=== PATIENT | female | born 1960 | race Caucasian/White ===

== ENCOUNTER 2020-02-08 21:34 | Emergency (ER) | payer OTHER ==
[2020-02-08 21:50] VITALS: TEMP 98.4
[2020-02-08] MEDS ORDERED: SODIUM CHLORIDE 0.9% 1,000 ML IV STA (22:28)
[2020-02-08] MEDS ORDERED: FAMOTIDINE 20 MG/2 ML VIAL IV STA (22:28)
[2020-02-08] MEDS ORDERED: DEXAMETHASONE SOD PHOSPHATE 10 MG/ML 1 ML VIAL IV STA (22:29)
--- NOTE | 2020-02-08 22:31 | ED ---
Allergic Reaction HPI - General Chief complaint: Allergic Reaction Stated complaint: Lips Swelling Time Seen by Provider: 02/08/20 22:01 Source: patient, RN notes reviewed, old records reviewed Mode of arrival: ambulatory Limitations: no limitations - History of Present Illness Initial Comments: This is a 59-year-old female DF for evaluation patient Dese for evaluation of swelling swelling of upper lip started before dinner patient finished dinner no as well as maybe a little bit worse On the Right Side Will Now on the Left Side with No Oral Involvement No Tongue Involvement No Shortness of Breath or Wheezing. Patient Is No Known ALLERGIC exposure but does admit to taking an JANKI inhibitor lisinopril Complaint: allergic reaction, facial swelling (Upper lip) -: hour(s) Exposure: medication (Lisinopril) Symptoms: lip swelling Severity: moderate Treatment Prior to Arrival: benadryl Previous Allergy History: none - Related Data Previous Rx's Medication Instructions Recorded Famotidine [Pepcid] 20 mg PO BID #28 tablet 02/08/20 Metoprolol Tartrate [Lopressor] 50 mg PO BID #60 tab 02/08/20 diphenhydrAMINE [Benadryl] 50 mg PO QID PRN #20 capsule 02/08/20 predniSONE 50 mg PO DAILY #5 tab 02/08/20 Allergies Allergy/AdvReac Type Severity Reaction Status Date / Time cephalexin [From Keflex] AdvReac Rash/Hives Verified 02/08/20 21:50 Sulfa (Sulfonamide AdvReac Rash/Hives Verified 02/08/20 21:50 Antibiotics) Review of Systems ROS Statement: Those systems with pertinent positive or pertinent negative responses have been documented in the HPI. ROS Other: All systems not noted in ROS Statement are negative. Past Medical History Past Medical History: Hypertension, Thyroid Disorder History of Any Multi-Drug Resistant Organisms: None Reported Past Surgical History: Appendectomy, Tonsillectomy Additional Past Surgical History / Comment(s): sinus surgery Past Psychological History: No Psychological Hx Reported Smoking Status: Never smoker Past Alcohol Use History: Daily Past Drug Use History: None Reported General Exam Limitations: no limitations General appearance: alert, in no apparent distress Head exam: Present: atraumatic, normocephalic, normal inspection Eye exam: Present: normal appearance, PERRL, EOMI. Absent: scleral icterus, conjunctival injection, periorbital swelling ENT exam: Present: normal exam, mucous membranes moist, other (Upper lip swelling no other swelling) Neck exam: Present: normal inspection. Absent: tenderness, meningismus, lymphadenopathy Respiratory exam: Present: normal lung sounds bilaterally. Absent: respiratory distress, wheezes, rales, rhonchi, stridor Cardiovascular Exam: Present: regular rate, normal rhythm, normal heart sounds. Absent: systolic murmur, diastolic murmur, rubs, gallop, clicks GI/Abdominal exam: Present: soft, normal bowel sounds. Absent: distended, tenderness, guarding, rebound, rigid Extremities exam: Present: normal inspection, full ROM, normal capillary refill. Absent: tenderness, pedal edema, joint swelling, calf tenderness Back exam: Present: normal inspection Neurological exam: Present: alert, oriented X3, CN II-XII intact Psychiatric exam: Present: normal affect, normal mood Skin exam: Present: warm, dry, intact, normal color. Absent: rash Course Vital Signs 02/08/20 02/08/20 21:44 23:10 Temperature 98.4 F Pulse Rate 72 65 Respiratory 18 16 Rate Blood Pressure 123/81 125/79 O2 Sat by Pulse 98 99 Oximetry - Reevaluation(s) Reevaluation #1: 02/09/20 00:11 Medical record is reviewed Reevaluation #2: 02/09/20 00:11 Swelling is mildly improved Reevaluation #3: 02/09/20 00:11 Patient has treatment here in the ER again mildly improved spoke with patient regarding symptoms management. We'll change blood pressure medication patient refusing admission Medical Decision Making - Medical Decision Making 59 female DEL with mild angioedema left upper lip swelling. Maybe mild improvement here in the ER advised observation patient refuses, will follow-up with primary care and return if symptoms progress, patient knows not to take lisinopril again - Lab Data Result diagrams: 02/08/20 22:43 02/08/20 22:43 Lab Results 02/08/20 02/08/20 Range/Units 22:43 22:43 WBC 3.6 L (3.8-10.6) k/uL RBC 3.92 (3.80-5.40) m/uL Hgb 11.9 (11.4-16.0) gm/dL Hct 35.7 (34.0-46.0) % MCV 91.1 (80.0-100.0) fL MCH 30.4 (25.0-35.0) pg MCHC 33.4 (31.0-37.0) g/dL RDW 12.1 (11.5-15.5) % Plt Count 229 (150-450) k/uL Neutrophils % 49 % Lymphocytes % 43 % Monocytes % 6 % Eosinophils % 0 % Basophils % 0 % Neutrophils # 1.8 (1.3-7.7) k/uL Lymphocytes # 1.6 (1.0-4.8) k/uL Monocytes # 0.2 (0-1.0) k/uL Eosinophils # 0.0 (0-0.7) k/uL Basophils # 0.0 (0-0.2) k/uL Sodium 129 L (137-145) mmol/L Potassium 4.3 (3.5-5.1) mmol/L Chloride 95 L (98-107) mmol/L Carbon Dioxide 27 (22-30) mmol/L Anion Gap 7 mmol/L BUN 13 (7-17) mg/dL Creatinine 0.80 (0.52-1.04) mg/dL Est GFR (CKD-EPI)AfAm >90 (>60 ml/min/1.73 sqM) Est GFR (CKD-EPI)NonAf 82 (>60 ml/min/1.73 sqM) Glucose 89 (74-99) mg/dL Calcium 9.5 (8.4-10.2) mg/dL Disposition Clinical Impression: Allergic reaction, Angioedema Disposition: HOME SELF-CARE Condition: Good Instructions (If sedation given, give patient instructions): Anaphylaxis (ED) Prescriptions: diphenhydrAMINE [Benadryl] 50 mg PO QID PRN #20 capsule PRN Reason: itching/rash Metoprolol Tartrate [Lopressor] 50 mg PO BID #60 tab Famotidine [Pepcid] 20 mg PO BID #28 tablet predniSONE 50 mg PO DAILY #5 tab Is patient prescribed a controlled substance at d/c from ED?: No Referrals: None,Stated [Primary Care Provider] - 1-2 days
[2020-02-08] MEDS ORDERED: TRANEXAMIC ACID 1,000 MG in SODIUM CHLORIDE 0.9% 100 ML IV ONE (22:45)
[2020-02-08 23:05] LABS: Basophils % (A) 0 %; Eosinophils % (A) 0 %; HCT 35.7 % (34.0-46.0); HGB 11.9 gm/dL (11.4-16.0); Lymphocytes # (A) 1.6 k/uL (1.0-4.8); Lymphocytes % (A) 43 %; MCH 30.4 pg (25.0-35.0); MCHC 33.4 g/dL (31.0-37.0); MCV 91.1 fL (80.0-100.0); Monocytes # (A) 0.2 k/uL (0-1.0); Monocytes % (A) 6 %; Neutrophils # (A) 1.8 k/uL (1.3-7.7); Neutrophils % (A) 49 %; Platelet Count 229 k/uL (150-450); RBC 3.92 m/uL (3.80-5.40); RDW 12.1 % (11.5-15.5); WBC 3.6 k/uL (3.8-10.6)
[2020-02-08 23:27] LABS: African American GFR (CKD) >90 (>60 ml/min/1.73 sqM); Anion Gap 7 mmol/L; Blood Urea Nitrogen 13 mg/dL (7-17); Calcium 9.5 mg/dL (8.4-10.2); Carbon Dioxide 27 mmol/L (22-30); Chloride 95 mmol/L (98-107); Glucose 89 mg/dL (74-99); Non-African American GFR(CKD) 82 (>60 ml/min/1.73 sqM); Potassium 4.3 mmol/L (3.5-5.1); Sodium 129 mmol/L (137-145)
[2020-02-08] MEDS ORDERED: predniSONE 20 MG TAB PO STA (23:45)
[2020-02-08 23:52] VITALS: BP 125/79; PULSE 65; RESP 16
== END 2020-02-09 00:06 | disposition home or self-care (01) ==
LOC: EC 21:34
DX: T78.3XXA Angioneurotic edema, initial encounter (principal); T46.4X5A Adverse effect of angiotensin-converting-enzyme inhibitors, initial encounter; Z88.1 Allergy status to other antibiotic agents; Z88.2 Allergy status to sulfonamides
CPT/HCPCS: 99284; 96365; 96375 ×2; 36415; 80048; 85025; J1100; J7512

== ENCOUNTER → 2021-07-17 | Outpatient (CLI) | payer OTHER ==
--- NOTE | 2021-07-23 10:53 | MM ---
Reason for exam: screening (asymptomatic). Last mammogram was performed 2 years and 1 month ago. History: Patient is postmenopausal and is nulliparous. Retro-pectoral silicone gel implants in both breasts, 2016. Reductions of both breasts, 2016. Physical Findings: A clinical breast exam by your physician is recommended on an annual basis and results should be correlated with mammographic findings. MG 3D Screen Mammo Imp/Cad Bilateral CC and MLO view(s) were taken. Prior study comparison: June 18, 2019, mammogram, performed at [facility]. December 07, 2017, mammogram, performed at [facility]. The breast tissue is extremely dense which could obscure a lesion on mammography. Bilateral implants are intact. No significant changes when compared with prior studies. ASSESSMENT: Benign, BI-RAD 2 RECOMMENDATION: Routine screening mammogram of both breasts in 1 year.
== END | disposition home or self-care (01) ==
LOC: RADMAMWWP 13:34
PROVIDERS: ATTEND Internal Medicine
DX: Z12.31 Encounter for screening mammogram for malignant neoplasm of breast (principal)
CPT/HCPCS: 77063; 77067

== ENCOUNTER → 2021-07-29 | Outpatient (CLI) | payer OTHER ==
--- NOTE | 2021-07-30 08:55 | CT ---
EXAMINATION TYPE: CT heart w calcium score DATE OF EXAM: 07/30/2021 COMPARISON: HISTORY: Screening for cardiovascular disorder. 213.9 CT DLP: 67.2 mGycm Automated exposure control for dose reduction was used. CT CALCIUM SCORING Coronary calcium is a marker for plaque (fatty deposits) in a blood vessel or atherosclerosis (harden ing of the arteries). The presence and amount of calcium detected in a coronary artery by the CT sca n, indicates the presence and amount of atherosclerotic plaque. These calcium deposits appear years before the development of heart disease symptoms such as chest pain and shortness of breath. A calcium score is computed for each of the coronary arteries based upon the volume and density of th e calcium deposits. This can be referred to as your calcified plaque burden. It does not correspond directly to the percentage of narrowing in the artery but does correlate with the severity of the un derlying coronary atherosclerosis. PROCEDURE TECHNIQUE - Prospective Gating was used. Slice thickness: 3mm. Density threshold (HU): 130, Pixel threshold: 3, Algorithm: discrete. RESULTS Region: LM Calcium Score (Agatston): 0 Volume (mm3): 0 Mass (g): 0 Region: RCA Calcium Score ([place]at[place]): 0 Volume (mm3): 0 Mass (g): 0 Region: LAD Calcium Score (Agatston): 0 Volume (mm3): 0 Mass (g): 0 Region: CX Calcium Score (Agatston): 0 Volume (mm3): 0 Mass (g): 0 Region: PDA Calcium Score (Agatston): 0 Volume (mm3): 0 Mass (g): 0 Total: Calcium Score (Agatston): 0 Volume (mm3): 0 Mass (g): 0 TOTAL CALCIUM SCORE: 0 Mild atherosclerotic plaque of the aorta. IMPRESSION: 1. There is a 5 mm right lower lobe pulmonary nodule. Standard CT of the chest is recommended. 2. Calcium Score: 0 Implication: No identifiable plaque. Risk of Coronary Artery Disease: Very low, generally less than 5%. CALCIUM SCORE IMPLICATION RISK OF C ORONARY ARTERY DISEASE 0 No identifiable plaque Very low, generally less than 5% 1-10 Minimal identifiable plaque Very unlikely, less than 10% 11-100 Definite, at least mild atherosclerotic plaque Mild or m inimal coronary narrowings likely 101-400 Definite, at least moderate atherosclerotic plaque Mild coronary ar mike disease highly likely, significant narrowing possible 401 or Higher Extensive atherosclerotic plaque High lik elihood of at least one significant coronary narrowing
== END | disposition home or self-care (01) ==
LOC: RADCTMAIN 14:16
PROVIDERS: ATTEND Internal Medicine
DX: Z13.6 Encounter for screening for cardiovascular disorders (principal); R91.1 Solitary pulmonary nodule
CPT/HCPCS: 75571

== ENCOUNTER → 2021-08-14 | Outpatient (CLI) | payer OTHER ==
--- NOTE | 2021-08-14 08:59 | CT ---
EXAMINATION TYPE: CT chest w con DATE OF EXAM: 08/14/2021 COMPARISON: CT calcium score July 29, 2021 HISTORY: Lung Nodule CT DLP: 185.00 mGycm. Automated Exposure Control for Dose Reduction was Utilized. TECHNIQUE: CT scan of the thorax is performed following with IV Contrast, patient injected with 100 mL of Isovue 300. FINDINGS: LUNGS: Redemonstration of 6 x 5 mm medial right basilar nodule fairly low density axial image 47. Rem ainder of lungs are clear without additional greater than 5 mm pulmonary nodules. No pleural effusion or pneumothorax seen bilaterally. MEDIASTINUM: There are no greater than 1 cm hilar or mediastinal lymph nodes. No cardiomegaly or pe ricardial effusion is seen. Thyroid gland is poorly seen suspected atrophic or absent, correlate clin ically OTHER: Scoliosis in the lumbar spine is partially. Bilateral subpectoral breast implants incidentally noted. IMPRESSION: Confirmation of 6 x 5 mm medial right basilar nodule. No additional significant nodules o r adenopathy. Correlate clinically to determine need for follow-up based on the below [employer] recommendations low-risk patients: no routine follow-up required high-risk patients: optional CT at 12 months (particularly with suspicious nodule morphology and/or u pper lobe location;
== END | disposition home or self-care (01) ==
LOC: RADCTMAIN 07:38
PROVIDERS: ATTEND Internal Medicine
DX: R91.1 Solitary pulmonary nodule (principal)
CPT/HCPCS: 71260; Q9967

== ENCOUNTER → 2021-09-15 | Outpatient (CLI) | payer OTHER ==
--- NOTE | 2021-09-15 22:35 | BD ---
EXAMINATION TYPE: Axial Bone Density DATE OF EXAM: 09/15/2021 COMPARISON: NONE CLINICAL HISTORY: 61 years year old Female. ICD-10 CODE: Z13.820 ENCOUNTER FOR SCREENING FOR OSTEOPO ROSIS Height: 64.25 Weight: 145 FRAX RISK QUESTIONS: Alcohol (3 or more units per day): YES Family History (Parent hip fracture): NO Glucocorticoids (More than 3mos): NO (Ex: prednisone, prednisolone, methylprednisolone, dexamethasone, and hydrocortisone). History of Fracture in Adulthood: NO Secondary Osteoporosis: 1. Type 1 Diabetes: NO 2. Hyperthyroidism: NO 3. Menopause before 45: NO 4. Malnutrition: NO 5. Chronic liver disease: NO Rheumatoid Arthritis: NO Current Tobacco Use: NO RISK FACTORS HISTORY OF: Hip Fracture (Right/Left): NO Spine Fracture: NO History of Wrist Fracture: NO Surgery to Spine/Hip(right/left)/Wrist (right/left)NO: Family History of Osteoporosis: NO Active: YES Diet low in dairy products/other sources of calcium: YES Postmenopausal woman: YES Take estrogen and/or progesterone medications: YES How lon YEAR Lost more than 2 inches in height since high school: NO Frequent falls: NO Poor Health: NO Hyperparathyroidism: NO Adrenal Insufficiency: NO MEDICATIONS: Prednisone or other steroids: NO Thyroid Medications: YES Which medication: SYNTHROID How Lon YEARS Osteoporosis Medications: NO Additional Medications: HCTZ, METOPROLOL, EFFEXOR. MULTI VITI AMN Additional History: EXAM MEASUREMENTS: Bone mineral densitometry was performed using the BlazeMeter System. Bone mineral density as measured about the Lumbar spine is: ----- L1-L4(G/cm2): 1.243 T Score Values are as follows: ----- L1: -1.1 ----- L2: -0.8 ----- L3: 1.3 ----- L4: 2.8 ----- L1-L4: BASELINE Bone mineral density about the R hip (g/cm2): 0.959 Bone mineral density about the L hip (g/cm2): 1.027 T Score values are as follows: -----R Neck: -0.6 -----L Neck: -0.1 -----R Total: 0.0 -----L Total: 0.5 BASELINE FRAX%s: The graph provided illustrates a 7.6% chance for a major osteoporotic fx and a 0.4% chance fo r the hips probability for fx in 10 years time. IMPRESSION: Normal (Values between +1 and -1 indicate normal bone mass). Consider repeating this study in 5 year s or sooner if there is some new clinical indication. NOTE: T-SCORE=SD OF THE YOUNG ADULT MEAN.
== END | disposition home or self-care (01) ==
LOC: RADBDWWP 15:41
PROVIDERS: ATTEND Internal Medicine
DX: Z13.820 Encounter for screening for osteoporosis (principal)
CPT/HCPCS: 77080

== ENCOUNTER → 2022-04-09 | Outpatient (CLI) | payer OTHER ==
--- NOTE | 2022-04-09 15:46 | CT ---
EXAMINATION TYPE: CT sinus wo con DATE OF EXAM: 04/09/2022 COMPARISON: None HISTORY: Chronic sinusitis. CT DLP: 446.[address] of the paranasal sinuses was performed in the axial and coronal planes. Bone and soft tissue settings are submitted. The paranasal sinuses demonstrate normal aeration and development. Moderate opacification right maxillary sinus. Mild mucosal thickening left maxillary sinus. Ethmoid a ir cells, frontal sinuses and sphenoid sinus appear well-aerated. The osteal meatal units are patent bilaterally. The nasal septum is midline. No bony destructive changes are seen within the field of view. IMPRESSION: Lungs compatible with chronic maxillary sinusitis right greater than left.
== END | disposition home or self-care (01) ==
LOC: RADCTMAIN 14:57
PROVIDERS: ATTEND Internal Medicine
DX: J32.0 Chronic maxillary sinusitis (principal)
CPT/HCPCS: 70486

== ENCOUNTER → 2022-10-22 | Outpatient (CLI) | payer OTHER ==
--- NOTE | 2022-10-25 10:09 | MM ---
Reason for Exam: Screening (asymptomatic). Last mammogram was performed 1 year(s) and 4 month(s) ago. Patient History: Menarche at age 15. Patient has no children. Postmenopausal. Estrogen for 8 years from age 52 until age 60. 2016, Bilateral Reduction. 2016, Bilateral Implants. Sister had ovarian cancer, age 50. Risk Values: Annalee 5 year model risk: 1.6%. NCI Lifetime model risk: 8.1%. Prior Study Comparison: 12/07/2017 Screening Mammogram, [facility]. 06/18/2019 Screening Mammogram, [facility]. 07/17/2021 Bilateral Screening Mammogram, [facility]. Tissue Density: The breast tissue is extremely dense which could obscure a lesion on mammography. Findings: Analyzed By CAD. No new suspicious group of microcalcifications within either breast. Bilateral breast implants are intact. No new suspicious masses in the right breast. Focal asymmetry demonstrated within the lower inner left breast at middle to posterior depth. Overall Assessment: Incomplete: need additional imaging evaluation, BI-RAD 0 Management: Diagnostic Mammogram of the left breast. A clinical breast exam by your physician is recommended on an annual basis and results should be correlated with mammographic findings. [facility] will attempt to contact patient to return for supplemental views and ultrasound if indicated. Electronically signed and approved by: Gurinder Joe D.O.
== END | disposition home or self-care (01) ==
LOC: RADMAMWWP 15:02
PROVIDERS: ATTEND Obstetrics & Gynecology
DX: Z12.31 Encounter for screening mammogram for malignant neoplasm of breast (principal); Z78.0 Asymptomatic menopausal state
CPT/HCPCS: 77063; 77067

== ENCOUNTER → 2022-10-26 | Outpatient (CLI) | payer OTHER ==
--- NOTE | 2022-10-26 14:26 | MM ---
Reason for Exam: Additional evaluation requested from abnormal screening. Last screening mammogram was performed less than 1 month ago. Patient History: Menarche at age 15. Patient has no children. Postmenopausal. Estrogen for 8 years from age 52 until age 60. 2016, Bilateral Reduction. 2016, Bilateral Implants. Sister had ovarian cancer, age 50. Risk Values: Annalee 5 year model risk: 1.6%. NCI Lifetime model risk: 8.1%. Prior Study Comparison: 06/18/2019 Screening Mammogram, [facility]. 07/17/2021 Bilateral Screening Mammogram, [facility]. 10/22/2022 Bilateral MG 3D screen mammo imp/cad., [facility]. Tissue Density: Left: The breast tissue is heterogeneously dense. This may lower the sensitivity of mammography. Findings: Analyzed By CAD. Asymmetric nodular density does persist on the spot CC compression view in the inner portion of the breast. Density measures nearly 1.2 cm and is 6.3 cm from the nipple. Ultrasound is recommended. Overall Assessment: Incomplete: need additional imaging evaluation, BI-RAD 0 Management: Diagnostic Breast Ultrasound of the left breast. . Results were given to the patient verbally at the time of exam. Patient should continue monthly self-breast exams. A clinical breast exam by your physician is recommended on an annual basis. This exam should not preclude additional follow-up of suspicious palpable abnormalities. Note on Annalee scores and lifetime risk: 1. A Annalee score greater than 3% is considered moderate risk. If this is the case, consider specialist referral to assess eligibility for a risk reducing agent. 2. If overall lifetime risk for the development of breast cancer is 20% or higher, the patient may qualify for future screening with alternating mammogram and breast MRI. Electronically signed and approved by: Eric Vasquez M.D. Radiologis
--- NOTE | 2022-10-26 15:02 | USB ---
Reason for Exam: Additional evaluation requested from abnormal screening. Patient History: Menarche at age 15. Patient has no children. Postmenopausal. Estrogen for 8 years from age 52 until age 60. 2016, Bilateral Reduction. 2016, Bilateral Implants. Sister had ovarian cancer, age 50. Risk Values: Annalee 5 year model risk: 1.6%. NCI Lifetime model risk: 8.1%. Technique: Method: Targeted. Prior Study Comparison: 06/18/2019 Screening Mammogram, [facility]. 07/17/2021 Bilateral Screening Mammogram, [facility]. 10/22/2022 Bilateral MG 3D screen mammo imp/cad., [facility]. Findings: The lower inner quadrant of the left breast, the axilla of the left breast and the retroareolar of the left breast were scanned. Targeted ultrasound inferior half of the left breast including the subareolar region and axilla. No solid or cystic lesion. No axillary lymphadenopathy. 6 month follow-up mammogram are prominent. Overall Assessment: Probably benign, BI-RAD 3 Management: Diagnostic Mammogram of the left breast in 6 months. A clinical breast exam by your physician is recommended on an annual basis and results should be correlated with mammographic findings. This exam should not preclude additional follow-up of suspicious palpable abnormalities. Results were given to the patient verbally at the time of exam. Electronically signed and approved by: Eryn Mckeon M.D. Radiologist
== END | disposition home or self-care (01) ==
LOC: RADMAMWWP 13:40
PROVIDERS: ATTEND Obstetrics & Gynecology
DX: R92.8 Other abnormal and inconclusive findings on diagnostic imaging of breast (principal); R92.2 Inconclusive mammogram; Z78.0 Asymptomatic menopausal state; Z80.41 Family history of malignant neoplasm of ovary
CPT/HCPCS: 77061; 77065

== ENCOUNTER → 2023-09-21 | Outpatient (CLI) | payer OTHER ==
--- NOTE | 2023-09-21 15:16 | CT ---
EXAMINATION TYPE: CT chest w con DATE OF EXAM: 09/21/2023 COMPARISON: 08/14/2021 HISTORY: Nonrheumatic mitral valve insufficiency. CT DLP: 554 mGycm, Automated exposure control for dose reduction was used. CONTRAST: Performed injected with 100ml mL of Isovue 300. TECHNIQUE: Axial images were obtained at 5 mm thick sections. Reconstructed images are reviewed on Orbeus computer in the coronal plane. FINDINGS: Portion of the thyroid visualized is normal. Bilateral breast prostheses are present. There is a 0.7 cm nodule at the azygos esophageal recess in the posterior right sulcus. Series 4 imag e 50. This was present previously and appears stable within measurement error. No additional lung nodules are identified. No enlarged mediastinal or hilar adenopathy is evident. The ascending aorta diameter at the level o f the main pulmonary artery is 3.2 cm. The main pulmonary artery diameter at the bifurcation is 2.[address] sections are obtained through the upper abdomen. Abdomen is essentially unremarkable. IMPRESSION: 1. Essentially stable 0.7 cm nodule posterior medial right lung base.
--- NOTE | 2023-09-21 16:40 | US ---
EXAMINATION TYPE: US carotid duplex BILAT DATE OF EXAM: 09/21/2023 COMPARISON: NONE CLINICAL INDICATION: Female, 63 years old with history of I65.23 STENOSIS; HTN- controlled with meds TECHNIQUE: Carotid duplex ultrasound examination. Indirect Doppler criteria was utilized. FINDINGS: EXAM MEASUREMENTS: RIGHT: Peak Systolic Velocity (PSV) cm/sec ----- Right CCA: 95.8 ----- Right ICA: 105.0 ----- Right ECA: 116.0 ICA/CCA ratio: 1.1 RIGHT: End Diastole cm/sec ----- Right CCA: 29.2 ----- Right ICA: 28.5 ----- Right ECA: 10.2 LEFT: Peak Systolic Velocity (PSV) cm/sec ----- Left CCA: 67.8 ----- Left ICA: 103.0 ----- Left ECA: 93.0 ICA/CCA ratio: 1.5 LEFT: End Diastole cm/sec ----- Left CCA: 19.2 ----- Left ICA: 37.6 ----- Left ECA: 14.0 VERTEBRALS (direction of flow): Right Vertebral: Antegrade Left Vertebral: Antegrade Rhythm: Normal [employer] NOTES: IMPRESSION: Less than 50% stenosis of the bilateral carotid bifurcations. Criteria for Assigning % of Stenosis / Diameter reduction (Estimation based on the indirect measurements of the internal carotid artery velocities (ICA PSV). 1. Normal (no stenosis)=ICA PSV < 125 cm/s: ratio < 2.0: ICA EDV<40 cm/s. 2. Less than 50% stenosis=ICA PSV < 125 cm/s: ratio < 2.0: ICA EDV<40 cm/s. 3. 50 to 69% stenosis=ICA PSV of 125 to 230 cm/s: ration 2.0 ? 4.0: ICA EDV 40-100 cm/s. 4. Greater than 70% stenosis to near occlusion= ICA PSV > 230 cm/s: ratio > 4.0: ICA EDV > 100 cm/s. 5. Near occlusion= ICA PSV velocities may be low or undetectable: variable ratio and ICA EDV. 6. Total occlusion=unable to detect flow.
--- NOTE | 2023-09-22 06:56 | CA ---
Transthoracic Echo Report Name: Kelsi Ayala Age: 63 Gender: F : 1960 Exam Date: 09/21/2023 14:34 Exam Location: [place] [facility] Ht (in): 64 Wt (lb): 145 Ordering Physician: Alexandra Dillon MD Attending/Referring Phys: Alexandra Dillno MD [place] Alexsandra Herrera RDCS Procedure CPT: Indications: Nonrheumatic mitral (valve) insufficiency. Cardiac Hx: Technical Quality: Good Contrast 1: Total Dose (mL): Contrast 2: Total Dose (mL): MEASUREMENTS (Male / Female) Normal Values 2D ECHO LV Diastolic Diameter PLAX 4.3 cm 4.2 - 5.9 / 3.9 - 5.3 cm LV Systolic Diameter PLAX 2.8 cm IVS Diastolic Thickness 0.8 cm 0.6 - 1.0 / 0.6 - 0.9 cm LVPW Diastolic Thickness 0.8 cm 0.6 - 1.0 / 0.6 - 0.9 cm LV Relative Wall Thickness 0.4 RV Internal Dim ED PLAX 3.2 cm LVOT Diameter 1.9 cm Aortic Root Diameter 2.3 cm LV Diastolic Volume MOD BP 85.2 cm??? 67 - 155 / 56 - 104 cm??? LV Systolic Volume MOD BP 32.4 cm??? 22 - 58 / 19 - 49 cm??? LV Ejection Fraction MOD BP 62.0 % >= 55 % LV Cardiac Index MOD BP 1948.5 cm???/min???m??? LV Diastolic Volume MOD 4C 85.7 cm??? LV Systolic Volume MOD 4C 31.9 cm??? LV Ejection Fraction MOD 4C 62.8 % LV Cardiac Index MOD 4C 1985.4 cm???/min???m??? LV Diastolic Length 4C 7.5 cm LV Systolic Length 4C 5.9 cm LV Diastolic Volume MOD 2C 80.8 cm??? LV Systolic Volume MOD 2C 31.6 cm??? LV Ejection Fraction MOD 2C 60.9 % LV Cardiac Index MOD 2C 1815.8 cm???/min???m??? LV Diastolic Length 2C 7.9 cm LV Systolic Length 2C 6.2 cm Ascending Aorta Diameter 3.4 cm DOPPLER AV Peak Velocity 151.9 cm/s AV Peak Gradient 9.2 mmHg AV Mean Velocity 98.6 cm/s AV Mean Gradient 4.5 mmHg AV Velocity Time Integral 32.3 cm LVOT Peak Velocity 115.1 cm/s LVOT Peak Gradient 5.3 mmHg LVOT Velocity Time Integral 26.4 cm LVOT Stroke Volume 73.9 cm??? LVOT Stroke Volume Index 43.3 ml/m??? LVOT Cardiac Index 2725.5 cm???/min???m??? AV Area Cont Eq vti 2.3 cm??? AV Area Cont Eq pk 2.1 cm??? Mitral E Point Velocity 64.6 cm/s Mitral A Point Velocity 70.7 cm/s Mitral E to A Ratio 0.9 MV Deceleration Time 219.1 ms MV E' Velocity 7.8 cm/s Mitral E to MV E' Ratio 8.2 TR Peak Velocity 270.7 cm/s TR Peak Gradient 29.3 mmHg Right Atrial Pressure 5.0 mmHg Pulmonary Artery Systolic Pressu 34.3 mmHg Right Ventricular Systolic Press 34.3 mmHg PV Peak Velocity 114.3 cm/s PV Peak Gradient 5.2 mmHg FINDINGS Left Ventricle Left ventricular ejection fraction is estimated at 60-65 %. Left ventricular cavity size normal. Left ventricular wall thickness normal. No obvious regional wall motion abnormalities. Right Ventricle Normal right ventricular size and function. Right ventricular systolic pressure within normal limits. Right Atrium Normal right atrial size. Left Atrium Normal left atrial size. Mitral Valve Structurally normal mitral valve. No evidence for mitral valve prolapse. No mitral stenosis. Trace mitral regurgitation. Aortic Valve Trileaflet aortic valve. No aortic valve stenosis or regurgitation. Tricuspid Valve Structurally normal tricuspid valve. No tricuspid stenosis. Mild tricuspid regurgitation. Pulmonic Valve Structurally normal pulmonic valve. No pulmonic stenosis. Trace pulmonic regurgitation. Pericardium No pericardial effusion. Aorta Normal size aortic root and proximal ascending aorta. CONCLUSIONS Normal LV systolic function Previewed by: Dr. Lev Cheng MD (Electronically Signed) Final Date: 22 Sep 2023 06:55
== END | disposition home or self-care (01) ==
LOC: RADCTMAIN 14:08
PROVIDERS: ATTEND Internal Medicine
DX: I34.0 Nonrheumatic mitral (valve) insufficiency (principal); I65.23 Occlusion and stenosis of bilateral carotid arteries; R91.1 Solitary pulmonary nodule; R92.8 Other abnormal and inconclusive findings on diagnostic imaging of breast
CPT/HCPCS: 93306; 93880; 71260; Q9967

== ENCOUNTER → 2023-09-23 | Outpatient (CLI) | payer OTHER ==
--- NOTE | 2023-09-23 14:42 | USB ---
Reason for Exam: Follow-up at short interval from prior study. Patient History: Menarche at age 15. Patient has no children. Postmenopausal. Estrogen for 8 years from age 52 until age 60. 2016, Bilateral Reduction. 2016, Bilateral Implants. Sister had ovarian cancer, age 50. Risk Values: Annalee 5 year model risk: 1.6%. NCI Lifetime model risk: 7.9%. Technique: Method: Targeted. Prior Study Comparison: 07/17/2021 Bilateral Screening Mammogram, [facility]. 10/22/2022 Bilateral MG 3D screen mammo imp/cad., [facility]. 10/26/2022 Left MG 3D work up w/cad LT, [facility]. Findings: The lower inner quadrant of the left breast, the axilla of the left breast and the retroareolar of the left breast were scanned. Technique utilized:US breast limited LT Image; Ultrasound imaging of: Area of concern, retroareolar region and axilla. No evidence for organizing fluid collection or mass. Overall Assessment: Negative, BI-RAD 1 Management: Screening Mammogram of both breasts in 1 year. A clinical breast exam by your physician is recommended on an annual basis and results should be correlated with mammographic findings. This exam should not preclude additional follow-up of suspicious palpable abnormalities. Results were given to the patient verbally at the time of exam. Electronically signed and approved by: Forrest Diamond DO
--- NOTE | 2023-09-26 07:22 | MM ---
Reason for Exam: Follow-up at short interval from prior study. Last screening mammogram was performed 11 month(s) ago. Patient History: Menarche at age 15. Patient has no children. Postmenopausal. Estrogen for 8 years from age 52 until age 60. 2016, Bilateral Reduction. 2016, Bilateral Implants. Sister had ovarian cancer, age 50. Risk Values: Annalee 5 year model risk: 1.6%. NCI Lifetime model risk: 7.9%. Prior Study Comparison: 07/17/2021 Bilateral Screening Mammogram, [facility]. 10/22/2022 Bilateral MG 3D screen mammo imp/cad., [facility]. 10/26/2022 Left MG 3D work up w/cad LT, [facility]. Tissue Density: The breasts are almost entirely fatty. Findings: Analyzed By CAD. Bilateral breast implants appear intact. Able fibroglandular tissue with stable left medial breast mass seen on cc view. No new suspicious masses, calcifications or distortions. Overall Assessment: Incomplete: need additional imaging evaluation, BI-RAD 0 Management: Diagnostic Breast Ultrasound of the left breast. Results were given to the patient verbally at the time of exam. Patient should continue monthly self-breast exams. A clinical breast exam by your physician is recommended on an annual basis. This exam should not preclude additional follow-up of suspicious palpable abnormalities. Note on Annalee scores and lifetime risk: 1. A Annalee score greater than 3% is considered moderate risk. If this is the case, consider specialist referral to assess eligibility for a risk reducing agent. 2. If overall lifetime risk for the development of breast cancer is 20% or higher, the patient may qualify for future screening with alternating mammogram and breast MRI. Electronically signed and approved by: Forrest Diamond DO
== END | disposition home or self-care (01) ==
LOC: RADMAMWWP 13:11
PROVIDERS: ATTEND Internal Medicine
DX: R92.8 Other abnormal and inconclusive findings on diagnostic imaging of breast (principal); I34.0 Nonrheumatic mitral (valve) insufficiency; I65.23 Occlusion and stenosis of bilateral carotid arteries; R91.1 Solitary pulmonary nodule; Z78.0 Asymptomatic menopausal state
CPT/HCPCS: 77062; 77066

== ENCOUNTER → 2024-09-25 | Outpatient (CLI) | payer OTHER ==
--- NOTE | 2024-09-25 08:18 | MM ---
Reason for Exam: Hx of breast augmentation, asymptomatic. Last mammogram was performed 1 year(s) and 11 month(s) ago. Patient History: Menarche at age 15. Patient has no children. Postmenopausal. Estrogen for 8 years from age 52 until age 60. 2016, Bilateral Reduction. 2016, Bilateral Implants. Sister had ovarian cancer, age 50. Risk Values: Annalee 5 year model risk: 1.7%. NCI Lifetime model risk: 7.7%. Prior Study Comparison: 12/07/2017 Screening Mammogram, [facility]. 06/18/2019 Screening Mammogram, [facility]. 07/17/2021 Bilateral Screening Mammogram, [facility]. 10/22/2022 Bilateral MG 3D screen mammo imp/cad., [facility]. 10/26/2022 Left MG 3D work up w/cad LT, [facility]. 09/23/2023 Bilateral MG 3D diag mammo imp w/cad [place], [facility]. Tissue Density: The breasts are extremely dense, which lowers the sensitivity of mammography. Findings: Analyzed By CAD. Right breast: There is no suspicious group of microcalcifications or new suspicious mass. Left breast: There is no suspicious group of microcalcifications or new suspicious mass. Overall Assessment: Benign, BI-RAD 2 Management: Screening Mammogram of both breasts in [address] [facility] will attempt to contact patient to return for supplemental views and ultrasound if indicated. Patient should continue monthly self-breast exams. A clinical breast exam by your physician is recommended on an annual basis. This exam should not preclude additional follow-up of suspicious palpable abnormalities. Note on Annalee scores and lifetime risk: 1. A Annalee score greater than 3% is considered moderate risk. If this is the case, consider specialist referral to assess eligibility for a risk reducing agent. 2. If overall lifetime risk for the development of breast cancer is 20% or higher, the patient may qualify for future screening with alternating mammogram and breast MRI. [facility], , 09/25/2024 8:15 AM. Electronically signed and approved by: Forrest Diamond DO
== END | disposition home or self-care (01) ==
LOC: RADMAMWWP 07:19
PROVIDERS: ATTEND Internal Medicine
DX: Z12.31 Encounter for screening mammogram for malignant neoplasm of breast (principal); R92.343 Mammographic extreme density, bilateral breasts; Z78.0 Asymptomatic menopausal state; Z98.82 Breast implant status
CPT/HCPCS: 77063; 77067

== ENCOUNTER 2024-10-30 09:28 | Day surgery (SDC) | payer OTHER ==
[2024-10-29 12:48] VITALS: BMI 23.1
[2024-10-30 10:05] VITALS: TEMP 97
[2024-10-30] MEDS: LACTATED RINGERS 1,000 ML IV SCH (10:05)
[2024-10-30] MEDS: LIDOCAINE 1% (10MG/ML) FOR IV START INTRADERMA STA (10:07)
[2024-10-30] MEDS: IV FLUID CONTINUATION 1,000 ML IV ONE (10:07)
[2024-10-30] MEDS ORDERED: PROPOFOL 10 MG/ML 20 ML VIAL IV ONE (10:36)
--- NOTE | 2024-10-30 10:49 | P.PCN ---
Date of Procedure: 10/30/24 Procedure(s) Performed: BRIEF HISTORY: Patient is a 64-year-old pleasant white female scheduled for an elective colonoscopy as a part of screening for colon cancer. PROCEDURE PERFORMED: Colonoscopy. PREOPERATIVE DIAGNOSIS: Screening for colon cancer. IV sedation per Anesthesia. PROCEDURE: After informed consent was obtained, the patient, was brought into the endoscopy unit. IV sedation was administered by Anesthesia under continuous monitoring. Digital rectal examination was normal. Initially the Olympus CF-160 flexible video colonoscope was then inserted in the rectum, gradually advanced into the cecum without any difficulty. Careful examination was performed as the scope was gradually being withdrawn. Ileocecal valve and the appendiceal orifice were visualized and appeared normal. Prep was excellent. Mucosa of the cecum, ascending colon, transverse colon, descending colon, sigmoid colon, and rectum appeared normal. Retroflexion was performed in the rectum and no lesions were seen. The patient tolerated the procedure well. IMPRESSION: Normal-appearing colon from rectum to cecum with no evidence of colorectal neoplasia. RECOMMENDATIONS: Findings of this examination were discussed with the patient as well as her family. She was advised to have repeat screening colonoscopy in 10 years..
[2024-10-30 11:19] VITALS: BP 121/77; PULSE 63; RESP 16
== END 2024-10-30 11:25 | disposition home or self-care (01) ==
LOC: ORWHC2ENDO 09:28
PROVIDERS: ATTEND Internal Medicine Gastroenterology
DX: Z12.11 Encounter for screening for malignant neoplasm of colon (principal)
CPT/HCPCS: 45378; J2704

== ENCOUNTER → 2024-11-08 | Outpatient (CLI) | payer OTHER ==
--- NOTE | 2024-11-08 15:37 | XR ---
EXAMINATION TYPE: XR Hip Complete LT DATE OF EXAM: 11/08/2024 3:09 PM COMPARISON: None CLINICAL INDICATION: Female, 64 years old with history of M25.552 Left hip pain; PHH, pain TECHNIQUE: XR Hip Complete LT; Frontal and lateral views FINDINGS: No evidence for acute process, joint dislocation or significant soft tissue swelling. Osteo phyte formation of the superior acetabulum of the hip. There is mild joint space narrowing. IMPRESSION: 1. No evidence for acute process. 2. Mild hip osteoarthrosis. [facility], , 11/08/2024 3:35 PM
== END | disposition home or self-care (01) ==
LOC: RADXRMAIN 14:48
PROVIDERS: ATTEND Internal Medicine
DX: M16.12 Unilateral primary osteoarthritis, left hip (principal)
CPT/HCPCS: 73502

== ENCOUNTER → 2024-11-21 | Outpatient (CLI) | payer OTHER ==
--- NOTE | 2024-11-26 06:43 | MR ---
EXAMINATION TYPE: MR hip LT wo con DATE OF EXAM: 11/21/2024 3:53 PM COMPARISON: Left hip x-ray November 08, 2024 CLINICAL INDICATION: Female, 64 years old with history of M25.552 PAIN IN LEFT HIP, Left hip pain IV Contrast: cc (None if empty) Standard multiplanar, multisequence MRI departmental protocol Multiplanar, multisequence images of the pelvis focusing on the left hip were acquired without contra st. Diffusion weighted imaging was performed. FINDINGS: Mild to moderate superior joint space loss and acetabular spurring in both hips is more pro minent in the left hip versus right hip. Small nonspecific hip joint effusions right slightly larger than left are noted. Femoral head shapes are maintained bilaterally. No serpiginous diminished T1 sig nal in the left hip. No suspicious increased T2 osseous signal. Increased T2 signal greater trochante r level bilaterally more prominent in the left hip is consistent with insertional tendinosis. Muscle bulk is symmetric and maintained bilaterally. No groin hernia or adenopathy is seen. Scoliotic curvature in the lumbar spine is seen with disc space narrowing and spurring most prominent right L4-L5 level. Nabothian cysts in the cervix are noted. Mildly distended bladder. IMPRESSION: Fairly moderate degenerative changes in the left hip are seen as detailed above. [facility], , 11/26/2024 6:41 AM
== END | disposition home or self-care (01) ==
LOC: RADMRIMAIN 15:15
PROVIDERS: ATTEND Internal Medicine
DX: M16.12 Unilateral primary osteoarthritis, left hip (principal)